=== PATIENT | female | born 1995 | race Caucasian/White ===

== ENCOUNTER 2023-06-17 14:26 | Emergency (ER) | payer SELFPAY ==
[~2023-06-17] VITALS: Ht 162.6 cm; Wt 126.1 kg
[2023-06-17 14:54] VITALS: BP 150/98; TEMP 98; O2SAT 100
[2023-06-17] MEDS ORDERED: MOXI3DRO EACHEYE (15:24)
== END 2023-06-17 15:39 | disposition home or self-care (01) ==
LOC: ER 14:36
DX: H10.11 Acute atopic conjunctivitis, right eye (principal); Z88.0 Allergy status to penicillin; Z88.8 Allergy status to other drugs, medicaments and biological substances

== ENCOUNTER 2023-07-22 19:44 | Emergency (ER) | payer OTHER ==
[~2023-07-22] VITALS: Ht 162.6 cm; Wt 127.0 kg
[~2023-07-22 19:44] MED LIST: MOXI3DRO EACHEYE
[2023-07-22 21:00] LABS: BASOPHILS # (AUTO) 0.1 K/uL (0.0-0.2); BASOPHILS % (AUTO) 0.6 % (0.0-2.0); EOSINOPHILS # (AUTO) 0.4 K/uL (0.0-0.7); EOSINOPHILS % (AUTO) 2.8 % (0.0-6.0); HEMATOCRIT 35 % (33-45); HEMOGLOBIN 10.8 g/dL (11.5-14.8); LYMPHOCYTES # (AUTO) 1.6 K/uL (0.8-4.8); LYMPHOCYTES % (AUTO) 10.7 % (20.0-44.0); MEAN CORPUSCULAR HEMOGLOBIN 26 PG (26.0-33.0); MEAN CORPUSCULAR HGB CONC 31 g/dl (31.0-36.0); MEAN CORPUSCULAR VOLUME 83 fL (82-100); MONOCYTES # (AUTO) 1.1 K/uL (0.1-1.30); MONOCYTES % (AUTO) 7.5 % (2.0-12.0); NEUTROPHILS # (AUTO) 11.4 K/uL (1.8-8.9); NEUTROPHILS % (AUTO) 78.4 % (43.0-81.0); PLATELET COUNT (AUTO) 330 K/uL (150-450); RED BLOOD CELL COUNT(AUTO) 4.16 MIL/uL (4.0-5.2); RED CELL DISTRIBUTION WIDTH 14.7 % (11.5-15.0); WHITE BLOOD COUNT (AUTO) 14.5 K/uL (4.3-11.0)
[2023-07-22] MEDS ORDERED: methylPREDNISolone SOD SUCC 125 MG/2ML VIAL ONE (21:02)
[2023-07-22 21:07] LABS: CARBON DIOXIDE 26 mmol/L (21-32); CHLORIDE 103 mmol/L (98-107); CREATININE 0.8 mg/dL (0.6-1.3); GLUCOSE 90 mg/dL (74-106); POTASSIUM 4.1 mmol/L (3.5-5.1); SODIUM SERUM 139 mmol/L (136-145); UREA NITROGEN, BLOOD 11 mg/dL (7-18)
[2023-07-22] MEDS: methylPREDNISolone SOD SUCC 125 MG/2ML VIAL IV ONE (21:08)
[2023-07-22] MEDS: ALBUTEROL FS 2.5 MG/0.5 ML VIAL.NEB NEB ONE ×2 (22:18→22:57)
[2023-07-22] MEDS ORDERED: ALBUTEROL FS 2.5 MG/0.5 ML VIAL.NEB ONE ×2 (22:22→23:06)
[2023-07-22] MEDS ORDERED: ACET325C7 PO (22:24)
[2023-07-22] MEDS ORDERED: BENZ1LOZ58 PO (22:24)
[2023-07-22] MEDS ORDERED: IBUP-1955 PO (22:24)
[2023-07-22] MEDS ORDERED: BENZ-13 PO (22:24)
[2023-07-22] MEDS ORDERED: ALBU18HF2 INH (22:24)
[2023-07-22 22:26] VITALS: O2SAT 97
[2023-07-22 22:41] VITALS: O2SAT 99
[2023-07-22 23:10] VITALS: O2SAT 98
[2023-07-22] MEDS ORDERED: PRED50TA PO (23:59)
[2023-07-23 00:10] VITALS: O2SAT 99
[2023-07-23 03:42] VITALS: BP 131/98; TEMP 98.8; O2SAT 99
== END 2023-07-23 03:43 | disposition home or self-care (01) ==
LOC: ER 19:51
DX: J45.909 Unspecified asthma, uncomplicated (principal); J06.9 Acute upper respiratory infection, unspecified; Z88.0 Allergy status to penicillin; Z88.8 Allergy status to other drugs, medicaments and biological substances; Z79.51 Long term (current) use of inhaled steroids; Z79.899 Other long term (current) drug therapy; Z20.822 Contact with and (suspected) exposure to COVID-19
CPT/HCPCS: 99285; 96374; 71045; 87426; 93005 ×2; 87804 ×2; 85025; 80048; 36415; 84484; 94799; 94640; 94644; J2930

== ENCOUNTER 2023-08-27 16:34 | Emergency (ER) | payer OTHER ==
[~2023-08-27] VITALS: Ht 162.6 cm; Wt 120.2 kg
[~2023-08-27 16:34] MED LIST changes: +ACET325C7 PO; +ALBU18HF2 INH; +BENZ-13 PO; +BENZ1LOZ58 PO; +IBUP-1955 PO; +PRED50TA PO
[2023-08-27 17:20] VITALS: BP 161/114; TEMP 98.2; O2SAT 99
[2023-08-27] MEDS ORDERED: ACYC-108 PO (17:51)
[2023-08-27 19:07] LABS: PREGNANCY TEST URINE QUAL NEGATIVE (NEGATIVE)
== END 2023-08-27 20:13 | disposition home or self-care (01) ==
LOC: ER 16:35
DX: L98.9 Disorder of the skin and subcutaneous tissue, unspecified (principal); R21 Rash and other nonspecific skin eruption; J45.909 Unspecified asthma, uncomplicated
CPT/HCPCS: 84703-TC

== ENCOUNTER 2023-10-02 18:00 | Emergency (ER) | payer OTHER ==
[~2023-10-02] VITALS: Ht 162.6 cm; Wt 122.5 kg
[~2023-10-02 18:00] MED LIST changes: +ACYC-108 PO
[2023-10-02] MEDS ORDERED: predniSONE 20 MG TABLET ONE (18:31)
[2023-10-02] MEDS: predniSONE 20 MG TABLET PO ONE (18:34)
[2023-10-02] MEDS ORDERED: IPRATROPIUM NEB FS 0.5 MG/2.5 ML AMPUL.NEB ONE (19:06)
[2023-10-02] MEDS ORDERED: ALBUTEROL FS 2.5 MG/3 ML VIAL.NEB ONE (19:06)
[2023-10-02] MEDS: IPRATROPIUM NEB FS 0.5 MG/2.5 ML AMPUL.NEB NEB ONE (19:12)
[2023-10-02] MEDS: ALBUTEROL FS 2.5 MG/3 ML VIAL.NEB NEB ONE (19:12)
[2023-10-02 19:13] VITALS: O2SAT 100
[2023-10-02 19:23] VITALS: O2SAT 100
[2023-10-02 19:34] VITALS: O2SAT 100
[2023-10-02] MEDS ORDERED: PRED20TA PO (19:54)
[2023-10-02] MEDS ORDERED: ALBU18HF2 INH (19:54)
[2023-10-02 20:06] VITALS: BP 139/75; TEMP 98.4; O2SAT 100
== END 2023-10-02 20:07 | disposition home or self-care (01) ==
LOC: ER 18:56
DX: J45.901 Unspecified asthma with (acute) exacerbation (principal); Z88.6 Allergy status to analgesic agent; Z88.8 Allergy status to other drugs, medicaments and biological substances
CPT/HCPCS: 99285; 94640 ×2; J7512

== ENCOUNTER 2024-02-17 18:09 | Emergency (ER) | payer OTHER ==
[~2024-02-17] VITALS: Ht 162.6 cm; Wt 99.8 kg
[~2024-02-17 18:09] MED LIST changes: +PRED20TA PO
[2024-02-17 18:25] VITALS: TEMP 98.6
[2024-02-17 19:08] LABS: BASOPHILS # (AUTO) 0.1 K/uL (0.0-0.2); BASOPHILS % (AUTO) 0.7 % (0.0-2.0); EOSINOPHILS # (AUTO) 0.7 K/uL (0.0-0.7); EOSINOPHILS % (AUTO) 6.7 % (0.0-6.0); HEMATOCRIT 36 % (33-45); HEMOGLOBIN 11.6 g/dL (11.5-14.8); LYMPHOCYTES # (AUTO) 2.3 K/uL (0.8-4.8); LYMPHOCYTES % (AUTO) 22.9 % (20.0-44.0); MEAN CORPUSCULAR HEMOGLOBIN 27 PG (26.0-33.0); MEAN CORPUSCULAR HGB CONC 32 g/dl (31.0-36.0); MEAN CORPUSCULAR VOLUME 85 fL (82-100); MONOCYTES # (AUTO) 0.7 K/uL (0.1-1.30); MONOCYTES % (AUTO) 7.2 % (2.0-12.0); NEUTROPHILS # (AUTO) 6.2 K/uL (1.8-8.9); NEUTROPHILS % (AUTO) 62.5 % (43.0-81.0); PLATELET COUNT (AUTO) 352 K/uL (150-450); RED BLOOD CELL COUNT(AUTO) 4.29 MIL/uL (4.0-5.2); RED CELL DISTRIBUTION WIDTH 14.4 % (11.5-15.0)
[2024-02-17] MEDS: IPRATROPIUM NEB FS 0.5 MG/2.5 ML AMPUL.NEB NEB ONE (19:14)
[2024-02-17] MEDS: ALBUTEROL FS 2.5 MG/3 ML VIAL.NEB NEB ONE (19:14)
[2024-02-17 19:18] LABS: CALCIUM, SERUM 8.7 mg/dL (8.5-10.1); CARBON DIOXIDE 27 mmol/L (21-32); CHLORIDE 105 mmol/L (98-107); CREATININE 0.8 mg/dL (0.6-1.3); GLUCOSE 91 mg/dL (74-106); POTASSIUM 3.8 mmol/L (3.5-5.1); SODIUM SERUM 137 mmol/L (136-145); UREA NITROGEN, BLOOD 8 mg/dL (7-18)
[2024-02-17] MEDS ORDERED: ALBUTEROL FS 2.5 MG/3 ML VIAL.NEB ONE (19:20)
[2024-02-17] MEDS ORDERED: IPRATROPIUM NEB FS 0.5 MG/2.5 ML AMPUL.NEB ONE (19:21)
[2024-02-17 19:24] LABS: ALANINE AMINOTRANSFERASE 10 U/L (12-78); ALBUMIN 3.4 g/dL (3.4-5.0); ALKALINE PHOSPHATASE 81 U/L (46-116); ASPARTATE AMINOTRANSFERASE 11 U/L (15-37); BILIRUBIN,DIRECT 0.1 mg/dL (0.0-0.2); BILIRUBIN,TOTAL 0.4 mg/dL (0.2-1.0); TOTAL PROTEIN, SERUM 7.6 g/dL (6.4-8.2)
[2024-02-17 19:27] VITALS: O2SAT 94
[2024-02-17 20:27] VITALS: O2SAT 100
[2024-02-17 20:28] LABS: PREGNANCY TEST URINE QUAL NEGATIVE (NEGATIVE)
[2024-02-17] MEDS ORDERED: PRED50TA PO (21:21)
[2024-02-17] MEDS ORDERED: [UNRECOGNIZED DRUG - CODE] PO (21:21)
[2024-02-17] MEDS ORDERED: ALBU8.5H8 INH (21:21)
[2024-02-17] MEDS ORDERED: [UNRECOGNIZED DRUG - CODE] PO (21:23)
[2024-02-17] MEDS ORDERED: predniSONE 20 MG TABLET ONE (21:25)
[2024-02-17] MEDS: predniSONE 50 MG TABLET PO ONE (21:28)
[2024-02-17 21:35] VITALS: BP 135/80; O2SAT 96
== END 2024-02-17 21:36 | disposition home or self-care (01) ==
LOC: ER 18:15
DX: R05.9 Cough, unspecified (principal); J45.909 Unspecified asthma, uncomplicated; J02.9 Acute pharyngitis, unspecified; R07.9 Chest pain, unspecified; R06.00 Dyspnea, unspecified; I10 Essential (primary) hypertension; Z88.8 Allergy status to other drugs, medicaments and biological substances; Z20.822 Contact with and (suspected) exposure to COVID-19
CPT/HCPCS: 99285; 71045; 87426; 93005; 85025; 80048; 80076; 84703; 36415; 84484; 94799; 94644; J7512

== ENCOUNTER 2024-07-15 12:40 | Emergency (ER) | payer OTHER ==
[~2024-07-15] VITALS: Ht 167.6 cm; Wt 99.8 kg
[~2024-07-15 12:40] MED LIST changes: +ALBU8.5H8 INH; +[UNRECOGNIZED DRUG - CODE] PO
[2024-07-15 13:16] VITALS: BP 132/82; TEMP 98.1; O2SAT 95
[2024-07-15] MEDS ORDERED: GUAI-425 PO (13:31)
[2024-07-15] MEDS ORDERED: BENZ-13 PO (13:31)
== END 2024-07-15 15:50 | disposition home or self-care (01) ==
LOC: ER 12:59
DX: J06.9 Acute upper respiratory infection, unspecified (principal); J45.909 Unspecified asthma, uncomplicated; R05.9 Cough, unspecified; R06.02 Shortness of breath; I10 Essential (primary) hypertension; Z79.52 Long term (current) use of systemic steroids; Z88.0 Allergy status to penicillin; Z88.1 Allergy status to other antibiotic agents
CPT/HCPCS: 71045-TC

== ENCOUNTER 2024-09-06 01:44 | Emergency (ER) | payer OTHER ==
[~2024-09-06] VITALS: Ht 167.6 cm; Wt 100.7 kg
[~2024-09-06 01:44] MED LIST changes: +GUAI-425 PO
[2024-09-06] MEDS ORDERED: CLIN300C12 PO (02:57)
[2024-09-06] MEDS ORDERED: dexAMETHasone 1 MG/ML UDC ONE (03:00)
[2024-09-06] MEDS: dexAMETHasone 1 MG/ML UDC PO ONE (03:07)
[2024-09-06 03:08] VITALS: BP 120/80; TEMP 98.2; O2SAT 96
== END 2024-09-06 03:08 | disposition home or self-care (01) ==
LOC: ER 01:49
DX: J02.9 Acute pharyngitis, unspecified (principal); I10 Essential (primary) hypertension; J45.909 Unspecified asthma, uncomplicated; Z79.52 Long term (current) use of systemic steroids; Z88.0 Allergy status to penicillin; Z88.1 Allergy status to other antibiotic agents
CPT/HCPCS: 99283; J8540

== ENCOUNTER 2024-12-02 06:51 | Emergency (ER) | payer OTHER ==
[~2024-12-02] VITALS: Ht 162.6 cm; Wt 120.2 kg
[~2024-12-02 06:51] MED LIST changes: +CLIN300C12 PO
[2024-12-02] MEDS ORDERED: IBUP-1955 PO (08:21)
[2024-12-02] MEDS ORDERED: AZIT250T13 PO (08:21)
[2024-12-02] MEDS ORDERED: dexaMETHasone SOD PHOSPHATE 1 ML ONE (08:28)
[2024-12-02] MEDS ORDERED: KETOROLAC TROMETHAMINE 15 MG/ML VIAL ONE (08:28)
[2024-12-02] MEDS ORDERED: ACETAMINOPHEN 325 MG TABLET ONE (08:28)
[2024-12-02] MEDS: dexaMETHasone SOD PHOSPHATE 10 MG/ML VIAL IM ONE (08:35)
[2024-12-02] MEDS: ACETAMINOPHEN 325 MG TABLET PO ONE (08:36)
[2024-12-02] MEDS: KETOROLAC TROMETHAMINE 15 MG/ML VIAL IM ONE (08:37)
[2024-12-02 09:40] VITALS: BP 138/86; TEMP 213.8; O2SAT 18
== END 2024-12-02 09:40 | disposition home or self-care (01) ==
LOC: ER 06:51
DX: J02.9 Acute pharyngitis, unspecified (principal); I10 Essential (primary) hypertension; J45.909 Unspecified asthma, uncomplicated; Z79.52 Long term (current) use of systemic steroids; Z88.0 Allergy status to penicillin; Z88.1 Allergy status to other antibiotic agents; Z79.899 Other long term (current) drug therapy
CPT/HCPCS: 99284; 96372 ×2; 87070; 87880; J1885; J1100; 86403-TC

== ENCOUNTER 2025-02-11 12:36 | Emergency (ER) | payer OTHER ==
[~2025-02-11] VITALS: Ht 162.6 cm; Wt 100.7 kg
[~2025-02-11 12:36] MED LIST changes: +AZIT250T13 PO
[2025-02-11] MEDS: ALBUTEROL FS 2.5 MG/3 ML VIAL.NEB NEB ONE (14:14)
[2025-02-11] MEDS: IPRATROPIUM NEB FS 0.5 MG/2.5 ML AMPUL.NEB NEB ONE (14:14)
[2025-02-11] MEDS ORDERED: IPRATROPIUM NEB FS 0.5 MG/2.5 ML AMPUL.NEB ONE (14:19)
[2025-02-11] MEDS ORDERED: ALBUTEROL FS 2.5 MG/3 ML VIAL.NEB ONE (14:19)
[2025-02-11 14:22] VITALS: O2SAT 95
[2025-02-11 14:32] VITALS: O2SAT 100; O2SAT 99
[2025-02-11] MEDS ORDERED: PRED20TA PO (14:57)
[2025-02-11] MEDS ORDERED: BENZ-13 PO (14:57)
[2025-02-11 15:54] VITALS: BP 124/75; TEMP 98.6; O2SAT 96
== END 2025-02-11 15:54 | disposition home or self-care (01) ==
LOC: ER 13:38
DX: J45.901 Unspecified asthma with (acute) exacerbation (principal); I10 Essential (primary) hypertension; Z79.52 Long term (current) use of systemic steroids; Z88.0 Allergy status to penicillin; Z88.1 Allergy status to other antibiotic agents; Z20.822 Contact with and (suspected) exposure to COVID-19